=== PATIENT | male | born 1940 | race Caucasian/White ===

== ENCOUNTER 2017-07-02 23:35 | Emergency (ER) | payer OTHER ==
[2017-07-02 23:51] VITALS: RESP 16
--- NOTE | 2017-07-02 23:55 | EDPHY ---
H & P Time Seen by Provider: 07/02/17 23:42 HPI/ROS: 77 yo M hard of hearing presents c/o an episode of lightheadedness when standing up from watching TV, and he felt he had a slightly unsteady gait. No weakness in his arms or legs and no difficulty with speech. He had chicken salad for dinner. Review of systems As per HPI General no fever no chills no weakness HEENT no eye pain no eye discharge. No eye redness, no sore throat Respiratory no cough, no shortness of breath Cardiac no chest pain, no peripheral edema GI no abdominal pain, no diarrhea, no constipation, no nausea, no vomiting no flank pain, no hematuria, no dysuria Musculoskeletal no myalgias, no joint pain Heme no easy bruising, no easy bleeding Endo no polyuria, no polydipsia Skin no rashes, no pruritus Neuro no syncope, no dizziness, no headaches, positive lightheadedness Psych is no suicidal ideation, no homicidal ideation Past Medical/Surgical History: BPH Hyperlipidemia Kidney stones Hematuria Social History: Denies alcohol or drug use Smoking Status: Unknown if ever smoked Physical Exam: 77-year-old male alert and oriented no acute distress nontoxic appearance afebrile HEENT atraumatic normocephalic, extraocular muscles intact, anicteric Oropharynx negative for erythema negative exudate, tolerating her own secretions Neck supple no meningismus Lungs clear to auscultation bilaterally Heart regular rate and rhythm without murmur rub or gallop Abdomen nondistended normoactive bowel sounds soft nontender Back no CVA tenderness, no step-offs, no spinal tenderness Extremities no cyanosis clubbing or edema Neuro alert and oriented, no focal deficits Constitutional: Initial Vital Signs Temperature (C) 36.5 C 07/02/17 23:35 Heart Rate 64 07/02/17 23:35 Respiratory Rate 16 07/02/17 23:35 Blood Pressure 162/90 H 07/02/17 23:35 O2 Sat (%) 95 07/02/17 23:35 O2 Delivery Mode Room Air Allergies/Adverse Reactions: morphine Allergy (Verified 07/02/17 23:45) Penicillins Allergy (Verified 07/02/17 23:45) Home Medications: Medication Instructions Recorded Atorvastatin Calcium [Lipitor 10 10 mg PO DAILY 12/24/11 mg (RX)] Coq-10 07/02/17 Fish Oil 10/17/17 Vitamin B-12 07/02/17 Medical Decision Making - Diagnostics EKG Interpretation: Normal sinus rhythm, no ischemic changes ED Course/Re-evaluation: Patient seen and evaluated for brief episode of lightheadedness associated with unsteady gait, lasting a few seconds to a few minutes. EKG normal sinus rhythm CT head neg for acute pathology Chest x-ray no consolidation Labs CBC normal CMP within normal limits ESR 4 TSH pending Troponin wnl Impression Lightheadedness resolved Cannot rule out TIA Plan Follow up with primary care physician this week Advise one baby aspirin daily. Differential Diagnosis: Orthostatic hypotension, seizure, TIA, CVA, electrolyte abnormality, arrhythmia - Data Points Laboratory Results: Laboratory Results 07/03/17 00:04 07/03/17 00:04 07/03/17 07/03/17 00:04 00:04 WBC 6.00 10^3/uL 10^3/uL (3.80-9.50) RBC 5.00 10^6/uL 10^6/uL (4.40-6.38) Hgb 14.9 g/dL g/dL (13.7-17.5) Hct 43.6 % % (40.0-51.0) MCV 87.2 fL fL (81.5-99.8) MCH 29.8 pg pg (27.9-34.1) MCHC 34.2 g/dL g/dL (32.4-36.7) RDW 13.8 % % (11.5-15.2) Plt Count 295 10^3/uL 10^3/uL (150-400) MPV 10.1 fL fL (8.7-11.7) Neut % (Auto) 63.0 % % (39.3-74.2) Lymph % (Auto) 24.2 % % (15.0-45.0) [place] % (Auto) 9.0 % % (4.5-13.0) Eos % (Auto) 2.0 % % (0.6-7.6) Baso % (Auto) 1.3 % % (0.3-1.7) Nucleat RBC Rel Count 0.0 % % (0.0-0.2) Absolute Neuts (auto) 3.78 10^3/uL 10^3/uL (1.70-6.50) Absolute Lymphs (auto) 1.45 10^3/uL 10^3/uL (1.00-3.00) Absolute Monos (auto) 0.54 10^3/uL 10^3/uL (0.30-0.80) Absolute Eos (auto) 0.12 10^3/uL 10^3/uL (0.03-0.40) Absolute Basos (auto) 0.08 10^3/uL 10^3/uL (0.02-0.10) Absolute Nucleated RBC 0.00 10^3/uL 10^3/uL (0-0.01) Immature Gran % 0.5 % % (0.0-1.1) Immature Gran # 0.03 10^3/uL 10^3/uL (0.00-0.10) ESR 4 MM/HR MM/HR (0-20) Sodium 142 mEq/L mEq/L (134-144) Potassium 4.2 mEq/L mEq/L (3.5-5.2) Chloride 107 mEq/L mEq/L (97-110) Carbon Dioxide 24 mEq/l mEq/l (22-31) Anion Gap 11 mEq/L mEq/L (8-16) BUN 15 mg/dL mg/dL (7-23) Creatinine 0.8 mg/dL mg/dL (0.7-1.3) Estimated GFR > 60 Glucose 109 mg/dL H mg/dL (70-100) Calcium 8.9 mg/dL mg/dL (8.5-10.4) Total Bilirubin 0.9 mg/dL mg/dL (0.1-1.4) AST 29 IU/L IU/L (17-59) ALT 46 IU/L IU/L (21-72) Alkaline Phosphatase 67 IU/L IU/L (38-126) Troponin I < 0.012 ng/mL ng/mL (0.000-0.034) Total Protein 6.2 g/dL L g/dL (6.3-8.2) Albumin 4.1 g/dL g/dL (3.5-5.0) TSH 4.640 uIU/mL uIU/mL (0.465-4.680) Departure - Departure Disposition: Home, Routine, Self-Care Clinical Impression: Lightheadedness Condition: Good Instructions: Lightheadedness (ED) Referrals: Eloy Quinonez MD [Medical Doctor] - As per Instructions
--- NOTE | 2017-07-02 23:58 | CPEKG ---
Heart Rate: 60 RR Interval: 1000 P-R Interval: 172 QRSD Interval: 92 QT Interval: 444 QTC Interval: 444 P [place]: 61 QRS [place]: -10 T Wave [place]: 31 EKG Severity - NORMAL ECG - EKG Impression: SINUS RHYTHM Electronically Signed By: Hayden Mckeon 05-Jul-2017 11:55:07
[2017-07-03 00:12] LABS: % IMMATURE GRANULYOCYTES 0.5 % (0.0-1.1); ABSOLUTE IMMATURE GRANULOCYTES 0.03 10^3/uL (0.00-0.10); ADD DIFF? NO; ADD MORPH? NO; ADD SCAN? NO; ATYPICAL LYMPHOCYTE FLAG 0 (0-99); FRAGMENT RBC FLAG 0 (0-99); HEMATOCRIT 43.6 % (40.0-51.0); HEMOGLOBIN 14.9 g/dL (13.7-17.5); LEFT SHIFT FLG 0 (0-99); LIPEMIA HEMOLYSIS FLAG 90 (0-99); MEAN CELL HEMOGLOBIN 29.8 pg (27.9-34.1); MEAN CELL HEMOGLOBIN CONCENTR. 34.2 g/dL (32.4-36.7); MEAN CELL VOLUME 87.2 fL (81.5-99.8); MEAN PLATELET VOLUME 10.1 fL (8.7-11.7); PLATELET CLUMPS FLAG 0 (0-99); PLATELET COUNT 295 10^3/uL (150-400); RED CELL DISTRIBUTION WIDTH 13.8 % (11.5-15.2)
[2017-07-03 00:15] VITALS: O2SAT 94
[2017-07-03 00:22] LABS: SEDIMENTATION RATE 4 MM/HR (0-20)
[2017-07-03 00:29] LABS: ALANINE AMINOTRANSFERASE 46 IU/L (21-72); ALBUMIN 4.1 g/dL (3.5-5.0); ALKALINE PHOSPHATASE 67 IU/L (38-126); ANION GAP 11 mEq/L (8-16); ASPARTATE AMINOTRANSFERASE 29 IU/L (17-59); BILIRUBIN,TOTAL 0.9 mg/dL (0.1-1.4); CALCIUM 8.9 mg/dL (8.5-10.4); CARBON DIOXIDE 24 mEq/l (22-31); CHLORIDE 107 mEq/L (97-110); CREATININE 0.8 mg/dL (0.7-1.3); GLOMERULAR FILTRATION RATE > 60; GLUCOSE 109 mg/dL (70-100); POTASSIUM 4.2 mEq/L (3.5-5.2); SODIUM 142 mEq/L (134-144); TOTAL PROTEIN 6.2 g/dL (6.3-8.2)
[2017-07-03 00:38] LABS: TROPONIN I < 0.012 ng/mL (0.000-0.034)
[2017-07-03 01:14] VITALS: BP 110/60; PULSE 94; TEMP 97.3
== END 2017-07-03 01:11 | disposition home or self-care (01) ==
LOC: CED 23:35
DX: R42 Dizziness and giddiness (principal)
CPT/HCPCS: 70450-PO; 71020-PO; 80053-PO; 84443-PO; 84484-PO; 85025-PO; 85652-PO

== ENCOUNTER → 2017-08-07 | Outpatient (CLI) | payer OTHER | LOC: CIMAGING 10:36 | PROVIDERS: ATTEND Internal Medicine | DX: R59.0 Localized enlarged lymph nodes (principal) | CPT/HCPCS: 76536-PO; 80053-PO; 80061-PO; 81003-PO; 84402-90; 84443-PO; 85025-PO ==

== ENCOUNTER 2018-10-28 17:27 | Emergency (ER) | payer OTHER ==
--- NOTE | 2018-10-28 19:25 | EDPHY ---
H & P Time Seen by Provider: 10/28/18 17:50 HPI/ROS: CHIEF COMPLAINT: Trip and fall, left hand pain, facial laceration. HISTORY OF PRESENT ILLNESS: Patient states he was finishing up his walk near his home today around 415 when he tripped on the sidewalk. He states he fell onto his left hand, left knee and hit head on the sidewalk causing a wound. He states he did not get knocked out. He was able to walk home without assistance. He took some Tylenol. He denies nausea or vomiting. He states he is currently hungry. He has no significant headache. Also denies shortness of breath. States that his left hand is painful and swollen but denies numbness distal to the injured area. Also with some abrasions to left knee and elbow. Remembers events. Denies dizziness or chest pain prior to the fall. REVIEW OF SYSTEMS: Constitutional: No fever, no chills. Eyes: No discharge. ENT: No sore throat. Cardiovascular: No chest pain, no palpitations. Respiratory: No cough, no shortness of breath. Gastrointestinal: No abdominal pain, no vomiting. Genitourinary: No dysuria. Musculoskeletal: No back pain. Skin: No rashes. Neurological: No headache. General Appearance: Alert, no distress. Eyes: Pupils equal and round no pallor or injection. 1.5 cm laceration above the left eyebrow laterally. ENT, Mouth: Mucous membranes moist. Respiratory: There are no retractions, lungs are clear to auscultation. Cardiovascular: Regular rate and rhythm. Gastrointestinal: Abdomen is soft and nontender, no masses, bowel sounds normal. Neurological: Awake, alert, cranial nerves intact. Normal strength and sensation all 4 extremities. Skin: Warm and dry, no rashes. Musculoskeletal: Neck is supple nontender. Extremities are symmetrical, full range of motion, abrasion to left elbow and left knee. Left hand with swelling diffusely over the 1st 2nd 3rd and 4th MCP. Distal sensation and movement intact. No snuffbox tenderness. Psychiatric: Patient is oriented X 3, there is no agitation. Medical/surgical history: High cholesterol, celiac disease, surgeries include hernia and knee surgery. Social history: Denies tobacco, drinks a glass of wine with dinner daily. No drugs. Smoking Status: Former smoker Constitutional: Initial Vital Signs Temperature (C) 36.8 C 10/28/18 17:33 Heart Rate 67 10/28/18 17:33 Respiratory Rate 16 10/28/18 17:33 Blood Pressure 145/99 H 10/28/18 17:33 O2 Sat (%) 97 10/28/18 17:33 O2 Delivery Mode Room Air Allergies/Adverse Reactions: morphine Allergy (Verified 10/28/18 17:44) Penicillins Allergy (Verified 10/28/18 17:44) Home Medications: Medication Instructions Recorded Coq-10 07/02/17 Fish Oil 07/02/17 Vitamin B-12 07/02/17 Medical Decision Making - Diagnostics Imaging Results: Imaging Impressions Hand X-Ray 10/28/18 17:41 Impression: Cortical impaction injuries of the second, third and fourth metacarpal heads. Head CT 10/28/18 18:23 Impression: Left forehead laceration without evidence of acute intracranial hemorrhage or calvarial fracture. 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 Imaging: Discussed imaging studies w/ director call center sales Radiologist Procedures: Procedure: Laceration repair. Verbal consent was obtained from the patient. The 1.5 cm facial laceration on the left eyebrow region was anesthetized in the usual fashion at 6:30 p.m.. Two mils of 1% epinephrine with epi used. The wound was irrigated, draped and explored to its base with a gloved finger. There were no deep structures involved. No tendon injury was identified. The wound was repaired with 5/0 Prolene. The wound repair was 4 simple interrupted sutures, good wound approximation.. The procedure was performed by myself. ED Course/Re-evaluation: Patient states unknown last tetanus but adamantly denies tetanus vaccination today. Despite reviewing risks and benefits of tetanus infection he refuses. Differential Diagnosis: Differential diagnosis includes but is not limited to intracranial hemorrhage, syncope, multiple fractures, facial laceration, abrasions and contusions. After evaluation patient with several minor traumatic injuries including facial laceration, small impact fractures of the 2nd 3rd and 4th metacarpals. These are closed. Laceration repair as above. CT scan of the head without acute injury. No other physical findings to suggest need for further radiology studies. Abrasions cleaned and dressed as well. Referred to Dr. Baez, orthopedist, for follow-up later this week. Suture removal in 5 days. Departure - Departure Clinical Impression: Multiple abrasions, Multiple contusions Facial laceration Qualifiers: Encounter type: initial encounter Qualified Code(s): S01.81XA - Laceration without foreign body of other part of head, initial encounter Multiple hand fractures Qualifiers: Encounter type: initial encounter Fracture type: closed Laterality: left Qualified Code(s): S62.92XA - Unspecified fracture of left wrist and hand, initial encounter for closed fracture Condition: Good Instructions: Hand Fracture (ED), Facial Laceration (ED) Additional Instructions: Wound care as described, keep stitches clean, keep covered with antibiotic ointment. Suture removal in 5 days. Return sooner if concerns of infection such as swelling, increased pain or pus. You should call the orthopedist tomorrow to arrange for follow-up for your hand fractures. Keep the splint on at all times except for during evaluation at manager investigations office. Elevate the injured hand and apply ice especially over the next 2 days. For the abrasions and contusions keep those areas clean as well. Ice can be helpful. Referrals: NONE *PRIMARY CARE P,. [Primary Care Provider] - As per Instructions Quinton Baez MD [Medical Doctor] - As per Instructions
[2018-10-28 20:59] VITALS: BP 138/92
== END 2018-10-28 20:40 | disposition home or self-care (01) ==
LOC: CED 17:27
PROC: 0HQ1XZZ Repair Face Skin, External Approach (ICD-10-PCS; principal; 2018-10-28)
DX: S01.81XA Laceration without foreign body of other part of head, initial encounter (principal); S62.92XA Unspecified fracture of left hand, initial encounter for closed fracture; W01.198A Fall on same level from slipping, tripping and stumbling with subsequent striking against other object, initial encounter; Y93.01 Activity, walking, marching and hiking; Y92.480 Sidewalk as the place of occurrence of the external cause
CPT/HCPCS: 12011; 70450; 73130; 99284; A4565